=== PATIENT | male | born 1995 | race Caucasian/White ===

== ENCOUNTER 2019-12-04 08:31 | Emergency (ER) | payer SELFPAY ==
[2019-12-04 08:44] VITALS: BP 136/78; PULSE 84; RESP 20; TEMP 36.6; O2SAT 99
--- NOTE | 2019-12-04 09:08 | ED.EXTPRO ---
HPI - Extremity Problem General Chief complaint: Extremity Injury, Upper Stated complaint: Shoulder pain Time Seen by Provider: 12/04/19 08:58 Source: patient and RN notes reviewed Mode of arrival: ambulatory Limitations: no limitations History of Present Illness HPI Narrative: Patient presents today complaining of left shoulder pain since yesterday, that is worse today. He reports that when he woke up this morning he had some numbness and tingling to his left arm radiating to the left wrist that lasted 2.5 hours.This has since resolved prior to arrival. Denies any injury or trauma. 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 Currently rates his pain 7/10 and has tried no medication or [id number] interventions prior to arrival. States pain increases with movement. MD Complaint: extremity pain Related Data Allergies Allergy/AdvReac Type Severity Reaction Status Date / Time No Known Allergies Allergy Verified 12/04/19 09:08 Review of Systems Review of Systems: Narrative: CONSTITUTIONAL: Denies body aches, fever, chills, or sweats. EYES: Denies visual changes, redness, or discharge. ENT: Denies rhinorrhea, congestion, sore throat, or otalgia. CARDIOVASCULAR: Denies chest pain, palpitations, or edema. RESPIRATORY: Denies cough or dyspnea. GASTROINTESTINAL: Denies abdominal pain, nausea, vomiting, or diarrhea. GENITOURINARY: Denies dysuria or hematuria. SKIN: Denies rash, itching, or wounds. MUSCULOSKELETAL: Denies back pain, or myalgia. +Left shoulder pain NEUROLOGIC: Denies headache, numbness, tingling, or weakness. PSYCH: Denies depression or anxiety. PMFSH Comments At time of signature, I have reviewed and agree with nursing past medical, surgical, social and family history unless otherwise noted. Please see nursing chart for further information. There is no relevant family history pertinent to the presenting complaint Exam Narrative: Exam Narrative: GENERAL: Well-appearing, well-nourished, and in no acute distress. HEAD: Normocephalic, atraumatic. EYES: EOMI. No redness or drainage. Conjunctivae normal. ENT: Mucous membranes pink and moist. NECK: Normal AROM. CHEST: No respiratory distress. EXTREMITIES: Left shoulder:Tenderness to the anterior shoulder and bicep. No deformity noted. Pain with full AROM except with internal rotation. Patient has minimal pain in the bicep with range of motion of the elbow.No tenderness to the lateral or posterior shoulder.Distal sensation intact. Capillary refill normal. Radial pulse normal. SKIN: Warm, dry, no rash. Capillary refill normal. Normal skin turgor. NEURO: No focal deficits. Alert and oriented x3. Gait steady. PSYCH: Normal affect. No signs of depression or anxiety. Course Vital Signs Vital signs: Vital Signs Temperature 97.9 F 12/04/19 08:44 Pulse Rate 84 12/04/19 08:44 Respiratory Rate 20 12/04/19 08:44 Blood Pressure 136/78 12/04/19 08:44 Pulse Oximetry 99 12/04/19 08:44 Temperature 97.9 F 12/04/19 08:44 Pulse Rate 84 12/04/19 08:44 Respiratory Rate 12/04/19 08:44 Blood Pressure 136/78 12/04/19 08:44 Pulse Oximetry 99 12/04/19 08:44 Reviewed. Pt has been instructed to follow up with his PCP regarding his elevated blood pressure today. MDM - Extremity (Nontraumatic) Differential Diagnosis Differential diagnosis: Likely other (Tendinitis, rotator cuff tear, bursitis, shoulder strain) Critical Care Time Critical Care Time Critical Care Time: No Discharge Plan Discharge Clinical Impression: Tendinitis of left rotator cuff Patient Disposition: Home, Self-Care Condition: Stable Instructions: Rotator Cuff Tendinitis (ED) Additional Instructions: Your symptoms are likely due to tendinitis in your shoulder. Please take the Medrol as prescribed. It is also recommended that you start an anti-inflammatory such as Aleve or ibuprofen to help with pain. Follow-up with you
== END 2019-12-04 09:10 | disposition home or self-care (01) ==
PROVIDERS: Emergency Provider Nurse Practitioner
DX: M75.102 Unspecified rotator cuff tear or rupture of left shoulder, not specified as traumatic (principal)
CPT/HCPCS: 99213; G0463